=== PATIENT | male | born 1945 ===

== ENCOUNTER 2019-02-28 21:54 | Emergency (ER) | payer OTHER ==
[2019-02-28 22:10] VITALS: BP 176/83
--- NOTE | 2019-02-28 22:15 | UC ---
Lower Extremity/Ankle HPI - HPI Summary HPI Summary: 73-year-old male comes in with a chief complaint of right thigh pain. Couple of hours ago he tripped and fell and struck his mid right lateral thigh on a piece of furniture. He is able to walk initially but over time there is been swelling in the lateral thigh and that's giving him more pain and now at rest the pain is 2 out of 10 with any kind of ambulation's 9 out of 10. Patient did for the dressing around which also helped decrease the pain. No complaint of hip or knee pain. Denies any other injuries. He is not on a blood thinner. No complaint of weakness or numbness. - History of Current Complaint Chief Complaint: UCLowerExtremity Stated Complaint: R THIGH COMPLAINT Time Seen by Provider: 02/28/19 22:05 Pain Intensity: 2 - Allergies/Home Medications Allergies/Adverse Reactions: Allergies Allergy/AdvReac Type Severity Reaction Status Date / Time Penicillins Allergy Severe Anaphylatic Verified 02/28/19 22:11 Shock Home Medications: Home Medications Aspirin 81 mg CHEW TAB* [Aspirin Low Dose TAB*] 81 mg PO DAILY 02/28/19 [ History Confirmed 02/28/19] Azilsartan Med/Chlorthalidone [Edarbyclor] 1 tab PO DAILY 02/28/19 [History Confirmed 02/28/19] Carvedilol TAB* [Coreg TAB*] 6.25 mg PO BID 02/28/19 [History Confirmed 02/28/19 ] Ibuprofen TAB* [Motrin TAB* 600 MG] 1,200 mg PO ONCE PRN 02/28/19 [History Confirmed 02/28/19] Rosuvastatin Calcium 20 mg PO DAILY 02/28/19 [History Confirmed 02/28/19] Sitagliptin Phos/Metformin HCl [Janumet 50-1000 mg] 1 tab PO BID 02/28/19 [ History Confirmed 02/28/19] PMH/Surg Hx/FS Hx/Imm Hx Previously Healthy: Yes Endocrine History: Diabetes, Dyslipidemia Cardiovascular History: Hypertension - Surgical History Surgical History: Yes Surgery Procedure, Year, and Place: appy - Family History Known Family History: Positive: Non-Contributory - Social History Alcohol Use: None Substance Use Type: None Smoking Status (MU): Former Smoker Review of Systems All Other Systems Reviewed And Are Negative: Yes Constitutional: Positive: Negative Skin: Positive: Negative Eyes: Positive: Negative ENT: Positive: Negative Respiratory: Positive: Negative Cardiovascular: Positive: Negative Gastrointestinal: Positive: Negative Motor: Positive: Negative Neurovascular: Positive: Negative Musculoskeletal: Positive: Other: - see hpi Neurological: Positive: Negative Psychological: Positive: Negative Is Patient Immunocompromised?: No Physical Exam Triage Information Reviewed: Yes Appearance: Well-Appearing, Well-Nourished, Pain Distress - mild with rom rt upper leg Vital Signs: Initial Vital Signs Temp 98.4 F 02/28/19 22:03 Pulse 57 02/28/19 22:03 Resp 16 02/28/19 22:03 BP 176/83 02/28/19 22:03 Pulse Ox 98 02/28/19 22:03 Vital Signs Reviewed: Yes Eye Exam: Normal Eyes: Positive: Conjunctiva Clear Neck: Positive: Supple Respiratory: Positive: No respiratory distress Musculoskeletal: Positive: Other: - Patient is tender to palpation right lateral mid thigh. He is swollen at that spot. He is not tender at the greater trochanter of the hip and is not tender in the knee. He is able to move his knee and his hip. Normal capillary refill. No sensation deficit. Normal dorsalis pedis posterior tibial pulses. Neurological Exam: Normal Neurological: Positive: Alert, Muscle Tone Normal Psychological Exam: Normal Psychological: Positive: Normal Response To Family, Age Appropriate Behavior Skin Exam: Normal Lower Extremity Course/Dx - Course Course Of Treatment: I discussed the x-rays with the patient and his . I do not see any fracture radiologist reading is pending. The injury is consistent with a hematoma in the lateral aspect of the thigh. Patient has normal dorsalis pedis posterior tibial pulses normal capillary refill distally. Discussed the possibility of compartment syndrome although the swelling is only in the lateral aspect it's not circumferential. Patient's been take ibuprofen he can use cold compresses and follow-up with his primary care doctor or orthopedics if not completely improved. He's also to get reevaluated sooner if anything worsens. - Differential Dx/Diagnosis Provider Diagnosis: Hematoma of right thigh, Contusion of right thigh Discharge - Sign-Out/Discharge Documenting (check all that apply): Patient Departure All imaging exams completed and their final reports reviewed: No - Discharge Plan Condition: Stable Disposition: HOME Patient Education Materials: Hematoma (ED), Contusion in Adults (ED), Crutch Instructions (ED) Referrals: [facility] [place] [facility] [Outside] Ary Roth MD [Medical Doctor] - Additional Instructions: FOLLOW UP WITH YOUR DOCTOR OR ORTHOPEDICS IF NOT COMPLETELY IMPROVED. GET REEVALUATED SOONER IF YOUR CONDITION WORSENS OR ANY QUESTIONS OR CONCERNS. - Billing Disposition and Condition Condition: STABLE Disposition: Home
--- NOTE | 2019-03-01 13:15 | UC ---
- Progress Note Progress Note: RADIOLOGY REPORT REVIEWED. No fracture of the right femur is noted. NO CHANGE IN MGMT. Course/Dx - Diagnoses Provider Diagnoses: Hematoma of right thigh, Contusion of right thigh Discharge - Sign-Out/Discharge Documenting (check all that apply): Post-Discharge Follow Up All imaging exams completed and their final reports reviewed: Yes - Discharge Plan Condition: Stable Disposition: HOME Patient Education Materials: Crutch Instructions (ED), Contusion in Adults (ED) , Hematoma (ED) Referrals: [facility] [place] [facility] [Outside] Ary Roth MD [Medical Doctor] - Additional Instructions: FOLLOW UP WITH YOUR DOCTOR OR ORTHOPEDICS IF NOT COMPLETELY IMPROVED. GET REEVALUATED SOONER IF YOUR CONDITION WORSENS OR ANY QUESTIONS OR CONCERNS. - Billing Disposition and Condition Condition: STABLE Disposition: Home
== END 2019-02-28 22:40 | disposition home or self-care (01) ==
LOC: UCEAST 21:54
DX: S70.11XA Contusion of right thigh, initial encounter (principal); W01.190A Fall on same level from slipping, tripping and stumbling with subsequent striking against furniture, initial encounter; Y92.9 Unspecified place or not applicable; E11.9 Type 2 diabetes mellitus without complications; Z79.84 Long term (current) use of oral hypoglycemic drugs; E78.5 Hyperlipidemia, unspecified; Z79.82 Long term (current) use of aspirin; Z88.0 Allergy status to penicillin; Z87.891 Personal history of nicotine dependence
CPT/HCPCS: 99202; G0463